=== PATIENT | female | born 1945 | race Hispanic/Latino ===

== ENCOUNTER 2016-06-19 15:23 | Emergency (ER) | payer MEDICARE ==
--- NOTE | 2016-06-19 16:12 | ERRECORD ---
[facility] EMERGENCY RECORD HPI NAUSEA/VOMITING/DIARRHEA (15:59 [facility]) CHIEF COMPLAINT: Patient presents for evaluation of vomiting, dry heaves. HISTORIAN: History provided by patient, 71F presents complaining of one week of intermittent vomiting and belching. States she saw her PMD who prescribed Zofran, but she has been afraid to take it because of the side effects she read on the warning label. Reports that she has not vomited in the last 2-3 days now, but still has some upset stomach episodes which cause her to burp. Making regular bowel movements. Was previously taking Tylenol/Codeine for an arm injury, but has stopped 2 days ago. Denies back pain, chest pain, or shortness of breath. LOCATION FEMALE: Symptoms are generalized. QUALITY: Pain is dull in nature, described as bloating sensation. TIME COURSE: Gradual onset of symptoms, Symptoms are improving, are intermittent. ASSOCIATED WITH FEMALE: Associated with nausea, No associated inability to tolerate oral intake. EXACERBATED BY: Patient's condition exacerbated by nothing. RELIEVED BY: Patient's condition relieved by belching. ROS (16:03 [facility]) CONSTITUTIONAL: Negative constitutional review of systems, Historian denies chills, denies fever. EYES: Negative eye review of systems, Historian denies eye pain, denies vision changes. ENT: Negative ears, nose, throat review of systems, Historian denies rhinorrhea, denies sore throat, denies voice changes. CARDIOVASCULAR: Negative cardiovascular review of systems, Historian denies chest pain, denies palpitations. RESPIRATORY: Negative respiratory review of systems, Historian denies cough, denies shortness of breath. GI: Historian denies food intolerance, reports nausea, reports vomiting. GENITOURINARY FEMALE: Negative genitourinary review of systems, Historian denies dysuria, denies frequency. MUSCULOSKELETAL: Negative musculoskeletal review of systems, Historian denies back pain, denies fall, denies injury. SKIN: Negative skin review of systems, Historian denies rash, denies skin changes. NEUROLOGIC: Negative neurologic review of systems, Historian denies headache, denies mental status changes, denies paralysis, denies paresthesias, denies sensory changes. HEMO/LYMPHATIC: Normal hematologic/lymphatic system review, Historian denies abnormal blood clotting. ALLERGIC/IMMUNOLOGIC: Normal allergy/immunologic system review, Historian denies frequent infections. PAST MEDICAL HISTORY (15:33 [facility]) MEDICAL HISTORY: Past medical history includes history of diabetes, Past medical history includes history of hyperlipidemia, &a-1R&a+25V*p+0X*h7155X*c152B*c15G*c2P*p-0X&a-25V&a+1RName: Danae Chapin : F71 MedRec: [id number] AcctNum: [id number] Prepared: Radha Jun 19, 2016 16:14 by Interface Page 1 of 4 pMD [facility] EMERGENCY RECORD Past medical history includes history of hypertension. FEMALE SURGICAL HISTORY: Patient's surgical history is not relevant to the management of the case. PSYCHIATRIC HISTORY: No previous psychiatric history. SOCIAL HISTORY: Patient denies alcohol use, Patient denies drug use, Patient has no smoking history. KNOWN ALLERGIES latex gloves No Known Drug Allergies CURRENT MEDICATIONS (15:35 [facility]) metFORMIN: TABLET : Strength - 1,000 mg : ORAL Patient Dose: 1000 mg Oral 2 times a day. lisinopril: TABLET : Strength - 20 mg : ORAL Patient Dose: 20 mg Oral 2 times a day. hydrochlorothiazide: TABLET : Strength - 25 mg : ORAL Patient Dose: 12.5 mg Oral. simvastatin: TABLET : Strength - 5 mg : ORAL Patient Dose: mg Oral once a day. ZyrTEC: TABLET : Strength - 10 mg : ORAL Patient Dose: 10 mg Oral once a day. aspirin: TABLET : Strength - 81 mg : ORAL Patient Dose: 81 mg Oral once a day. Synthroid: TABLET : Strength - 50 mcg : ORAL Patient Dose: 50 mcg Oral once a day. acetaminophen-codeine: TABLET : Strength - 300 mg-30 mg : ORAL Patient Dose: 1 tab(s) Oral every 4 hours prn. VITAL SIGNS (15:32 [facility]) VITAL SIGNS: BP: 116/69, Pulse: 93, Resp: 18, Temp: 98.2 (Oral), Pain: 0, O2 sat: 98 on Room Air, Time: 06/19/2016 15:32. PHYSICAL EXAM (16:03 [facility]) CONSTITUTIONAL: Vital signs reviewed, Patient afebrile, Pulse normal, Blood pressure normal, Respiratory rate normal, Patient appears non toxic, Patient appears pain free, Patient alert and oriented to person, place and time. HEAD: Head exam normal, Head exam included findings of head atraumatic, normocephalic. EYES: Eye exam normal, Eye exam included findings of eyelids normal to inspection, Pupils equally round and reactive to light, Extraocular muscles intact, no nystagmus. &a-1R&a+25V*p+0X*u9951F*c152B*c15G*c2P*p-0X&a-25V&a+1RName: Danae Chapin : F71 MedRec: [id number] AcctNum: [id number] Prepared: Radha Jun 19, 2016 16:14 by Interface Page 2 of 4 D [facility] EMERGENCY RECORD ENT: ENT exam normal, Ear exam normal, external ear normal, tympanic membranes normal, no bleeding, Pharynx exam normal, Uvula exam normal, Tonsil exam normal, Mouth exam normal, mucous membranes moist, teeth normal. NECK: Neck exam normal, Neck exam included findings of normal range of motion, Trachea midline, no meningeal signs, no cervical adenopathy, no tenderness. RESPIRATORY CHEST: Respiratory and chest exam normal, Respiratory exam included findings of no respiratory distress, Breath sounds clear. CARDIOVASCULAR: Cardiovascular assessment normal, Cardiovascular exam included findings of heart rate regular rate and rhythm, Heart sounds normal. ABDOMEN FEMALE: Abdominal exam included findings of abdomen nontender, Bowel sounds normal, no distension, no mass, no pulsatile masses, no peritoneal signs, no rigidity, no guarding, no rebound, Rovsing's sign absent. BACK: Back exam normal, Back exam included findings of normal inspection, range of motion normal, no tenderness. UPPER EXTREMITY: Upper extremity exam normal, Upper extremity exam included findings of inspection normal, Range of motion normal, Motor strength normal, Sensation intact, Radial pulse normal. LOWER EXTREMITY: Lower extremity exam normal, Lower extremity exam included findings of inspection normal, Range of motion normal, Motor strength normal, Sensation intact, Posterior tibial pulse normal, Pedal pulse normal. NEURO: Neuro exam normal, Neuro exam findings include patient oriented to person, place and time, Speech normal, Gait normal, Cranial nerves intact, no focal motor deficits, no focal sensory deficits. SKIN: Skin exam normal, Skin exam included findings of skin warm, dry, and normal in color, no rash. PSYCHIATRIC: Psychiatric exam normal, Normal affect. DOCTOR NOTES (16:03 [facility]) TEXT: Patient is well appearing, with improving symptoms of belching and vomiting. benign abdominal exam and despite her previous abdominal surgeries, my suspicion for intestinal obstruction or other surgical issue is very low. I believe her symptoms are possibly secondary to the Tylenol/Codeine, possibly food related, but as they are improving and she has no other alarming signs or symptoms, she is appropriate for outpatient management. PATIENT STATUS: Patient has improved since arrival to emergency department. PATIENT PLAN: The patient will be discharged, The patient will follow up with primary care physician. PROBLEM LIST No recorded problems DIAGNOSIS (15:45 [facility]) &a-1R&a+25V*p+0X*j5330W*c152B*c15G*c2P*p-0X&a-25V&a+1RName: Danae Chapin : F71 MedRec: [id number] AcctNum: [id number] Prepared: Radha Jun 19, 2016 16:14 by Interface Page 3 of 4 pMD [facility] EMERGENCY RECORD FINAL: PRIMARY: ACUTE GASTRITIS WITHOUT BLEEDING. PRESCRIPTION (15:44 [facility]) Reglan oral: TABLET : 5 mg : ORAL : Quantity: 1 Unit: tab(s) Route: ORAL Schedule: every 6 hours PRN Dispense: 12 May substitute. Refills: No Refills . NOTES: No refills. DISPOSITION PATIENT: Disposition Type: Discharge, Disposition: *Discharge Home. (15:45 [facility]) Patient left the department. (16:06 [facility]) Zacarias: DARIEN=MD Mercedes, Haris [facility]=CHLOE Kraus, Lali &a-1R&a+25V*p+0X*l3060Y*c152B*c15G*c2P*p-0X&a-25V&a+1RName: Danae Chapin : F71 MedRec: [id number] AcctNum: [id number] Prepared: Radha Jun 19, 2016 16:14 by Interface Page 4 of 4 pMD MTDD
--- NOTE | 2016-06-19 16:16 | PICIS ---
[facility] EMERGENCY RECORD TRIAGE (MonJun 19, 2016 15:29 [facility]) TRIAGE NOTES: Vomiting x 1 week, diarrhea x 1 day. (MonJun 19, 2016 15:29 [facility]) PATIENT: NAME: Danae Chapin, AGE: 71, GENDER: female, : Sat 1945, TIME OF GREET: MonJun 19, 2016 15:24, PREFERRED LANGUAGE: Yoruba, ETHNICITY: or , ECODE BILLING MAP: [facility], SSN: [id number], Zip Code: [address], KG WEIGHT: 68.95, PHONE: , , , PERSON ID: [id number], PAYMENT: [employer], PCP: DO CANO KRISTEL. (MonJun 19, 2016 15:29 [facility]) COMPLAINT: vomiting. (MonJun 19, 2016 15:29 [facility]) ADMISSION: URGENCY: 3 Urgent, ADMISSION SOURCE: Home, TRANSPORT: CAR, BED: ER -03. ([place] Jun 19, 2016 15:29 [facility]) ASSESSMENT: Assessment: A&OX4. RR EVEN AND UNLABORED., Symptoms began greater than 1 week ago. (15:33 [facility]) PAIN: No complaint of pain. (15:33 [facility]) IMMUNIZATIONS: Flu vaccine not up to date, Tetanus immunization up to date, Pneumococcal vaccine up to date. (15:33 [facility]) SIRS SCORING: Heart Rate 55-109 (0), Temp range 96.8-101.1 (0), respiratory rate 12-24 (0), Mental Status altered: no (0), Infection or Suspected Infection: No. (15:33 [facility]) TRIAGE SCREENING: Patient denies suicidal ideation, Patient denies presence of domestic violence. (15:33 [facility]) PROVIDERS: TRIAGE NURSE: Lali Kraus RN. ([place] Jun 19, 2016 15:29 [facility]) VITAL SIGNS: BP 116/69, Pulse 93, Resp 18, Temp 98.2, (Oral), Pain 0, O2 Sat 98, on Room Air, Time 06/19/2016 15:32. (15:32 [facility]) PREVIOUS VISIT ALLERGIES: No Known Drug Allergies. ([place] Jun 19, 2016 15:29 [facility]) No Known Drug Allergies. (15:33 [facility]) KNOWN ALLERGIES latex gloves No Known Drug Allergies CURRENT MEDICATIONS (15:35 [facility]) metFORMIN: TABLET : Strength - 1,000 mg : ORAL Patient Dose: 1000 mg Oral 2 times a day. lisinopril: TABLET : Strength - 20 mg : ORAL Patient Dose: 20 mg Oral 2 times a day. hydrochlorothiazide: TABLET : Strength - 25 mg : ORAL Patient Dose: 12.5 mg Oral. simvastatin: TABLET : Strength - 5 mg : ORAL Patient Dose: mg Oral once a day. ZyrTEC: TABLET : Strength - 10 mg : ORAL &a-1R&a+25V*p+0X*i1704X*c152B*c15G*c2P*p-0X&a-25V&a+1RName: Danae Chapin : F71 MedRec: [id number] AcctNum: [id number] Prepared: Radha Jun 19, 2016 16:14 by Interface Page 1 of 5 pMD [facility] EMERGENCY RECORD Patient Dose: 10 mg Oral once a day. aspirin: TABLET : Strength - 81 mg : ORAL Patient Dose: 81 mg Oral once a day. Synthroid: TABLET : Strength - 50 mcg : ORAL Patient Dose: 50 mcg Oral once a day. acetaminophen-codeine: TABLET : Strength - 300 mg-30 mg : ORAL Patient Dose: 1 tab(s) Oral every 4 hours prn. VITAL SIGNS (15:32 [facility]) VITAL SIGNS: BP: 116/69, Pulse: 93, Resp: 18, Temp: 98.2 (Oral), Pain: 0, O2 sat: 98 on Room Air, Time: 06/19/2016 15:32. NURSING ASSESSMENT: ABDOMEN (15:35 [facility]) CONSTITUTIONAL: Patient arrives ambulatory, Gait steady, History obtained from patient, Patient appears, uncomfortable, Patient cooperative, Patient alert, Oriented to person, place and time, Skin warm, Skin dry, Skin normal in color, Mucous membranes pink, Mucous membranes moist, Patient is well-groomed, Patient complains of Vomiting, Patient reports vomiting x 1 week, reports diarrhea 1 day ago, vomiting is intermittent, last time she vomited was 3 days. PAIN: cramping pain, diffusely, Patient rates pain as 0 out of 10. ABDOMEN: Abdomen assessment findings include abdomen symmetrical, Abdomen soft, tender, diffusely, Associated with nausea, Associated with vomiting, history of vomiting, no associated constipation, Date of last bowel movement: 06/19/2016 am, Associated with appetite change, decrease. GENITOURINARY FEMALE: no associated urinary complaints. NOTES: Patient tolerated procedure well. NURSING PROCEDURE: DISCHARGE NOTE (15:57 [facility]) DISCHARGE: Patient discharged to home, ambulating without assistance, driving self, unaccompanied, Summary of Care printed/ provided, Transition record given to patient, Discharge instructions given to patient, Simple or moderate discharge teaching performed, by CHLOE Escalera, Discharge instructions and follow up reviewed with patient. Pt ambulatory to discharge desk., Prescriptions given and instructions on side effects given, Name of prescription(s) given: Giovani mcintyre person(s) verbalized understanding of discharge instructions and follow-up care. BELONGINGS: Belongings remain with patient, Valuables remain with patient. HPI NAUSEA/VOMITING/DIARRHEA (15:59 [facility]) CHIEF COMPLAINT: Patient presents for evaluation of vomiting, dry heaves. HISTORIAN: History &a-1R&a+25V*p+0X*r9958T*c152B*c15G*c2P*p-0X&a-25V&a+1RName: Danae Chapin : F71 MedRec: [id number] AcctNum: [id number] Prepared: Radha Jun 19, 2016 16:14 by Interface Page 2 of 5 pMD [facility] EMERGENCY RECORD provided by patient, 71F presents complaining of one week of intermittent vomiting and belching. States she saw her PMD who prescribed Zofran, but she has been afraid to take it because of the side effects she read on the warning label. Reports that she has not vomited in the last 2-3 days now, but still has some upset stomach episodes which cause her to burp. Making regular bowel movements. Was previously taking Tylenol/Codeine for an arm injury, but has stopped 2 days ago. Denies back pain, chest pain, or shortness of breath. LOCATION FEMALE: Symptoms are generalized. QUALITY: Pain is dull in nature, described as bloating sensation. TIME COURSE: Gradual onset of symptoms, Symptoms are improving, are intermittent. ASSOCIATED WITH FEMALE: Associated with nausea, No associated inability to tolerate oral intake. EXACERBATED BY: Patient's condition exacerbated by nothing. RELIEVED BY: Patient's condition relieved by belching. ROS (16:03 [facility]) CONSTITUTIONAL: Negative constitutional review of systems, Historian denies chills, denies fever. EYES: Negative eye review of systems, Historian denies eye pain, denies vision changes. ENT: Negative ears, nose, throat review of systems, Historian denies rhinorrhea, denies sore throat, denies voice changes. CARDIOVASCULAR: Negative cardiovascular review of systems, Historian denies chest pain, denies palpitations. RESPIRATORY: Negative respiratory review of systems, Historian denies cough, denies shortness of breath. GI: Historian denies food intolerance, reports nausea, reports vomiting. GENITOURINARY FEMALE: Negative genitourinary review of systems, Historian denies dysuria, denies frequency. MUSCULOSKELETAL: Negative musculoskeletal review of systems, Historian denies back pain, denies fall, denies injury. SKIN: Negative skin review of systems, Historian denies rash, denies skin changes. NEUROLOGIC: Negative neurologic review of systems, Historian denies headache, denies mental status changes, denies paralysis, denies paresthesias, denies sensory changes. HEMO/LYMPHATIC: Normal hematologic/lymphatic system review, Historian denies abnormal blood clotting. ALLERGIC/IMMUNOLOGIC: Normal allergy/immunologic system review, Historian denies frequent infections. PAST MEDICAL HISTORY (15:33 [facility]) MEDICAL HISTORY: Past medical history includes history of diabetes, Past medical history includes history of hyperlipidemia, Past medical history includes history of hypertension. FEMALE SURGICAL HISTORY: Patient's surgical history is not relevant to the management of the case. &a-1R&a+25V*p+0X*n8018H*c152B*c15G*c2P*p-0X&a-25V&a+1RName: Danae Chapin : F71 MedRec: [id number] AcctNum: [id number] Prepared: Radha Jun 19, 2016 16:14 by Interface Page 3 of 5 pMD [facility] EMERGENCY RECORD PSYCHIATRIC HISTORY: No previous psychiatric history. SOCIAL HISTORY: Patient denies alcohol use, Patient denies drug use, Patient has no smoking history. PHYSICAL EXAM (16:03 [facility]) CONSTITUTIONAL: Vital signs reviewed, Patient afebrile, Pulse normal, Blood pressure normal, Respiratory rate normal, Patient appears non toxic, Patient appears pain free, Patient alert and oriented to person, place and time. HEAD: Head exam normal, Head exam included findings of head atraumatic, normocephalic. EYES: Eye exam normal, Eye exam included findings of eyelids normal to inspection, Pupils equally round and reactive to light, Extraocular muscles intact, no nystagmus. ENT: ENT exam normal, Ear exam normal, external ear normal, tympanic membranes normal, no bleeding, Pharynx exam normal, Uvula exam normal, Tonsil exam normal, Mouth exam normal, mucous membranes moist, teeth normal. NECK: Neck exam normal, Neck exam included findings of normal range of motion, Trachea midline, no meningeal signs, no cervical adenopathy, no tenderness. RESPIRATORY CHEST: Respiratory and chest exam normal, Respiratory exam included findings of no respiratory distress, Breath sounds clear. CARDIOVASCULAR: Cardiovascular assessment normal, Cardiovascular exam included findings of heart rate regular rate and rhythm, Heart sounds normal. ABDOMEN FEMALE: Abdominal exam included findings of abdomen nontender, Bowel sounds normal, no distension, no mass, no pulsatile masses, no peritoneal signs, no rigidity, no guarding, no rebound, Rovsing's sign absent. BACK: Back exam normal, Back exam included findings of normal inspection, range of motion normal, no tenderness. UPPER EXTREMITY: Upper extremity exam normal, Upper extremity exam included findings of inspection normal, Range of motion normal, Motor strength normal, Sensation intact, Radial pulse normal. LOWER EXTREMITY: Lower extremity exam normal, Lower extremity exam included findings of inspection normal, Range of motion normal, Motor strength normal, Sensation intact, Posterior tibial pulse normal, Pedal pulse normal. NEURO: Neuro exam normal, Neuro exam findings include patient oriented to person, place and time, Speech normal, Gait normal, Cranial nerves intact, no focal motor deficits, no focal sensory deficits. SKIN: Skin exam normal, Skin exam included findings of skin warm, dry, and normal in color, no rash. PSYCHIATRIC: Psychiatric exam normal, Normal affect. EVENTS TRANSFER: Triage to Emergency Emergency Room -03. (Sun Jun 19, 2016 15:29 [facility]) &a-1R&a+25V*p+0X*d5947M*c152B*c15G*c2P*p-0X&a-25V&a+1RName: Danae Chapin : F71 MedRec: [id number] AcctNum: [id number] Prepared: Radha Jun 19, 2016 16:14 by Interface Page 4 of 5 pMD [facility] EMERGENCY RECORD Removed from Emergency Emergency Room -03. (16:06 [facility]) DOCTOR NOTES (16:03 [facility]) TEXT: Patient is well appearing, with improving symptoms of belching and vomiting. benign abdominal exam and despite her previous abdominal surgeries, my suspicion for intestinal obstruction or other surgical issue is very low. I believe her symptoms are possibly secondary to the Tylenol/Codeine, possibly food related, but as they are improving and she has no other alarming signs or symptoms, she is appropriate for outpatient management. PATIENT STATUS: Patient has improved since arrival to emergency department. PATIENT PLAN: The patient will be discharged, The patient will follow up with primary care physician. PROBLEM LIST No recorded problems DIAGNOSIS (15:45 [facility]) FINAL: PRIMARY: ACUTE GASTRITIS WITHOUT BLEEDING. DISPOSITION PATIENT: Disposition Type: Discharge, Disposition: *Discharge Home. (15:45 [facility]) Patient left the department. (16:06 [facility]) INSTRUCTION (15:46 [facility]) DISCHARGE: VOMITING (4Y-ADULT). FOLLOWUP: DO CANO KRISTEL, [facility], [address] [place] [phone], [id number]. SPECIAL: Follow up with Dr. Cano. Take Zofran if you're feeling nausea. PRESCRIPTION (15:44 [facility]) Reglan oral: TABLET : 5 mg : ORAL : Quantity: 1 Unit: tab(s) Route: ORAL Schedule: every 6 hours PRN Dispense: 12 May substitute. Refills: No Refills . NOTES: No refills. IMAGING *DISCHARGE INSTRUCTIONS RECEIPT: Image captured from scanner. (16:09 [facility]) *SUPPLY CHARGE SHEET: Image captured from scanner. (16:10 [facility]) ADMIN DIGITAL SIGNATURE: MD Mercedes, Haris. (16:05 [facility]) CHLOE Kraus Krista. (16:11 [facility]) Zacarias: RY=MD Mercedes, Haris KMOR=CHLOE Kraus Krista &a-1R&a+25V*p+0X*i2448R*c152B*c15G*c2P*p-0X&a-25V&a+1RName: Danae Chapin : F71 MedRec: [id number] AcctNum: [id number] Prepared: Radha Jun 19, 2016 16:14 by Interface Page 5 of 5 pMD MTDD
== END 2016-06-19 15:57 | disposition home or self-care (01) ==
LOC: BURERS 15:23
DX: K29.00 Acute gastritis without bleeding (principal); E11.9 Type 2 diabetes mellitus without complications; E78.5 Hyperlipidemia, unspecified; I10 Essential (primary) hypertension
CPT/HCPCS: 99283

== ENCOUNTER 2016-09-01 14:58 | Outpatient (CLI) | payer MEDICARE ==
[2016-09-01 17:01] LABS: #Basophils 0.1 thou/uL (0.0-0.2); #Eosinphils 0.1 thou/uL (0.0-0.7); #Lymphocytes 1.7 thou/uL (1.20-3.40); #Monocytes 0.6 thou/uL (0.11-0.59); #Neutrophils 4.7 thou/uL (1.40-6.50); %Basophils 1.1 % (0.0-1.0); %Eosinophils 1.3 % (0.0-10.0); %Lymphocytes 23.9 % (21.0-51.0); %Monocytes 7.8 % (0.0-10.0); %Neutrophils 65.9 % (42.0-75.0); Hemoglobin 11.8 g/dL (12.0-16.0); Mean Corpuscular HGB CONC 31.3 g/dL (32.0-36.0); Mean Corpuscular Hemoglobin 26.3 pg (27.0-31.0); Mean Corpuscular Volume 84.1 fl (81.0-99.0); Mean Platelet Volume 7.5 fL (7.4-10.4); Platelet Count 227 thou/uL (130-400); RBC Distribution Width 12.9 % (11.5-14.5); Red Blood Cell (RBC) Count 4.48 mill/uL (4.20-5.40); White Blood Cell (WBC) Count 7.1 thou/uL (4.8-10.8)
[2016-09-01 17:54] LABS: Creatinine, Urine 54.14 mg/dL (47-110); Microalbumin Urine Less than 1.0 mg/dL (0.5-50.0); Microalbumin/Creat Ratio 18.5 mg/g (Less than 30)
== END 2016-09-01 14:59 | disposition home or self-care (01) ==
LOC: HPCALD 14:58
PROVIDERS: ATTEND Family Medicine
DX: E11.9 Type 2 diabetes mellitus without complications (principal); E03.9 Hypothyroidism, unspecified; D62 Acute posthemorrhagic anemia
CPT/HCPCS: 36415; 82043; 84443; 85025

== ENCOUNTER 2016-12-07 09:26 | Outpatient (CLI) | payer MEDICARE | END 2016-12-07 09:27 | disposition home or self-care (01) | LOC: HPCALD 09:26 | PROVIDERS: ATTEND Physician Assistant | DX: N39.0 Urinary tract infection, site not specified (principal) | CPT/HCPCS: 87077; 87086; 87186 ==

== ENCOUNTER 2017-07-27 17:49 | Emergency (ER) | payer MEDICARE ==
[2017-07-27 18:33] LABS: #Basophils 0.1 thou/uL (0.0-0.2); #Lymphocytes 1.3 thou/uL (1.20-3.40); #Monocytes 0.6 thou/uL (0.11-0.59); #Neutrophils 4.9 thou/uL (1.40-6.50); %Basophils 1.1 % (0.0-1.0); %Eosinophils 0.3 % (0.0-10.0); %Lymphocytes 18.9 % (21.0-51.0); %Neutrophils 71.7 % (42.0-75.0); Hemoglobin 11.4 g/dL (12.0-16.0); Mean Corpuscular HGB CONC 34.7 g/dL (32.0-36.0); Mean Corpuscular Hemoglobin 27.5 pg (27.0-31.0); Mean Corpuscular Volume 79.1 fl (81.0-99.0); Mean Platelet Volume 7.5 fL (7.4-10.4); Platelet Count 232 thou/uL (130-400); RBC Distribution Width 12.7 % (11.5-14.5); Red Blood Cell (RBC) Count 4.14 mill/uL (4.20-5.40); White Blood Cell (WBC) Count 6.8 thou/uL (4.8-10.8)
[2017-07-27 18:49] LABS: ALT (SGPT) 14 U/L (8-55); AST (SGOT) 30 U/L (5-34); Albumin 4.2 g/dL (3.4-4.8); Alkaline Phosphatase 63 U/L (40-150); Anion Gap 17 mmol/L (10-20); BUN (Urea Nitrogen) 17 mg/dL (9.8-20.1); Bilirubin, Total 0.5 mg/dL (0.2-1.2); Calc. Creatinine Clearance 0 mL/min (70-130); Calcium 9.2 mg/dL (7.8-10.44); Carbon Dioxide 20 mmol/L (23-31); Chloride 90 mmol/L (98-107); Estimated GFR-MDRD 46; Globulin 2.9 g/dL (2.4-3.5); Glucose 98 mg/dL (83-110); Lipase 18 U/L (8-78); Potassium 4.3 mmol/L (3.5-5.1); Protein, Total 7.1 g/dL (6.0-8.3); Sodium 123 mmol/L (136-145)
[2017-07-27 18:52] LABS: Troponin I 0.014 ng/mL (< 0.028)
[2017-07-27 18:54] LABS: CKMB 7.4 ng/mL (0-6.6)
--- NOTE | 2017-07-27 20:35 | RAD ---
ACUTE ABDOMEN SERIES 07/27/17 The gas pattern is nonspecific with gas in nondistended large and small bowel. There is considerable fecal material in the colon. There are no pathologic calcifications. Lumbar scoliosis convexed left i s present along with degenerative change of the spine. A chest film in the series shows a normal sized heart and clear lungs. IMPRESSION: Mild constipation. Nonspecific gas pattern. POS: HOME
[2017-07-27 20:52] LABS: Troponin I 0.018 ng/mL (< 0.028)
== END 2017-07-27 21:06 | disposition home or self-care (01) ==
LOC: BURERS 17:49
DX: R10.10 Upper abdominal pain, unspecified (principal); E78.5 Hyperlipidemia, unspecified; I10 Essential (primary) hypertension; E11.9 Type 2 diabetes mellitus without complications
CPT/HCPCS: 74022; 80053; 82553; 83690; 84484; 85025; 93005

== ENCOUNTER 2019-08-05 12:46 | Outpatient (CLI) | payer MEDICARE ==
--- NOTE | 2019-08-05 17:39 | RAD ---
RIGHT SHOULDER THREE VIEWS: Date: 08-05-2019 Comparison: 08-08-16 from [place] [facility] FINDINGS: The patient's prior fracture of the mid humeral shaft is noted from the past. No acute or recent frac ture was appreciated. There is a little sclerosis along the lateral border of the scapula beneath the glenoid, however, this does appear to be present previously. There is no dislocation or AC joint wid ening. IMPRESSION: Old humeral shaft fracture, but no recent fractures were detected. POS: HOME
--- NOTE | 2019-08-05 17:42 | RAD ---
RIGHT HUMERUS TWO VIEWS: Date: 08-05-2019 FINDINGS: Comparison with 2017 films that show the fracture of the humeral midshaft with some overlap and off-s et of the fragments. The basic alignment of the prior fracture does not appear to have changed. I do not see anything that would allow me to diagnose an acute re-fracture, however, if there were new nubia n at this site then further imaging could be needed. The upper and lower ends of the humerus appeared intact. IMPRESSION: Old mid humeral shaft fracture. I cannot confirm recent re-injury. Correlate with clinical exam. POS: HOME
== END 2019-08-05 12:47 | disposition home or self-care (01) ==
LOC: BURRAD 12:46
PROVIDERS: ATTEND Family Medicine
DX: M25.511 Pain in right shoulder (principal); R22.31 Localized swelling, mass and lump, right upper limb; S42.301D Unspecified fracture of shaft of humerus, right arm, subsequent encounter for fracture with routine healing

== ENCOUNTER 2019-09-15 08:50 | Emergency (ER) | payer MEDICARE, OTHER ==
[2019-09-15] MEDS ORDERED: Triple Antibiotic Oint 1 GM Packet ONE (09:31)
--- NOTE | 2019-09-15 11:05 | RAD ---
PELVIS 2 VIEWS: Date: 09/15/2019 No fracture was appreciated. The bony pelvis appeared intact and the SI joints were not widened. The hip joints are symmetrical. There is no widening of the symphysis. The pubic rings appear intact. IMPRESSION: No acute findings. POS: HOME
--- NOTE | 2019-09-15 11:07 | RAD ---
SACRUM AND COCCYX: Date: 09/15/2019 Three views show the last segment of the coccyx is displaced anteriorly. Additionally, the joint betw een S5 and the top of the coccyx is widened, suggesting that it has been traumatized. An actual fract ure is not seen. Degenerative changes are prominent in the lower lumbar spine at the lumbosacral junc tion. IMPRESSION: Anterior displacement of the last segment of the coccyx and evidence of slight separation between the coccyx and lower sacrum. POS: HOME
== END 2019-09-15 11:15 | disposition home or self-care (01) ==
LOC: BURERS 08:50
DX: S33.2XXA Dislocation of sacroiliac and sacrococcygeal joint, initial encounter (principal); E11.9 Type 2 diabetes mellitus without complications; E78.5 Hyperlipidemia, unspecified; I10 Essential (primary) hypertension; Z20.828 Contact with and (suspected) exposure to other viral communicable diseases; W01.198A Fall on same level from slipping, tripping and stumbling with subsequent striking against other object, initial encounter
CPT/HCPCS: 72170; 72220

== ENCOUNTER 2021-03-25 08:39 | Emergency (ER) | payer OTHER, MEDICARE | END 2021-03-25 10:13 | disposition home or self-care (01) | LOC: BURERS 08:39 | DX: S00.83XA Contusion of other part of head, initial encounter (principal); S50.12XA Contusion of left forearm, initial encounter; E11.9 Type 2 diabetes mellitus without complications; E78.5 Hyperlipidemia, unspecified; I10 Essential (primary) hypertension; E03.9 Hypothyroidism, unspecified; K21.9 Gastro-esophageal reflux disease without esophagitis; W01.198A Fall on same level from slipping, tripping and stumbling with subsequent striking against other object, initial encounter; Y92.009 Unspecified place in unspecified non-institutional (private) residence as the place of occurrence of the external cause | CPT/HCPCS: 70450 ==

== ENCOUNTER 2022-03-12 16:50 | Emergency (ER) | payer OTHER, MEDICARE ==
[2022-03-12] MEDS ORDERED: Acetaminophen 500 MG TAB ONE (17:22)
== END 2022-03-12 18:04 | disposition home or self-care (01) ==
LOC: BURERS 16:50
DX: S30.0XXA Contusion of lower back and pelvis, initial encounter (principal); E11.9 Type 2 diabetes mellitus without complications; E78.5 Hyperlipidemia, unspecified; I10 Essential (primary) hypertension; F03.90 Unspecified dementia, unspecified severity, without behavioral disturbance, psychotic disturbance, mood disturbance, and anxiety; W01.0XXA Fall on same level from slipping, tripping and stumbling without subsequent striking against object, initial encounter
CPT/HCPCS: 72170; 72220

== ENCOUNTER 2022-06-15 14:40 | Outpatient (CLI) | payer MEDICARE | END 2022-06-15 14:41 | disposition home or self-care (01) | LOC: BURRAD 14:40 | PROVIDERS: ATTEND Physician Assistant | DX: M79.642 Pain in left hand (principal); M19.042 Primary osteoarthritis, left hand; M81.0 Age-related osteoporosis without current pathological fracture ==

== ENCOUNTER 2022-10-23 13:29 | Emergency (ER) | payer MEDICARE ==
[2022-10-23] MEDS ORDERED: traMADol HCl 50 MG TAB ONE (15:19)
== END 2022-10-23 16:07 | disposition home or self-care (01) ==
LOC: BURERS 13:29
DX: M25.562 Pain in left knee (principal); I10 Essential (primary) hypertension; E78.5 Hyperlipidemia, unspecified

== ENCOUNTER 2023-10-11 06:45 | Emergency (ER) | payer MEDICARE ==
[2023-10-11 07:18] LABS: Eosinophils 2 % (0-10); Hematocrit 32.5 % (36.0-47.0); Hemoglobin 10.3 g/dL (12.0-16.0); Hypochromia SLIGHT = 6-15 cells (100X) (0-5/hpf); Lymphocytes 22 % (21-51); MDiff Complete? YES; Mean Corpuscular HGB CONC 31.7 g/dL (32.0-36.0); Mean Corpuscular Hemoglobin 24.4 pg (27.0-31.0); Mean Corpuscular Volume 77.2 fl (78.0-98.0); Mean Platelet Volume 8.2 fL (7.4-10.4); Microcytosis SLIGHT = 6-15 cells (100X) (0-5/hpf); Monocytes 7 % (0-10); Neutrophil 69 % (42-75); Platelet Count 175 10x3/uL (130-400); RBC Distribution Width 13.7 % (11.5-14.5); Red Blood Cell (RBC) Count 4.21 mill/uL (4.20-5.40); White Blood Cell (WBC) Count 4.8 10x3/uL (4.8-10.8)
[2023-10-11 07:25] LABS: Bilirubin Negative (Negative); Blood, Urine Trace (Negative); Glucose, Urine (Dipstick) Negative (Negative); Ketone, Urine Negative (Negative); Leukocyte Large (Negative); Nitrite Negative (Negative); Protein, Urine (Dipstick) Negative (Neg-Trace); Urobilinogen 0.2 mg/dL (Less than 2)
[2023-10-11 07:30] LABS: ALT (SGPT) 11 U/L (8-55); AST (SGOT) 25 U/L (5-34); Albumin 3.8 g/dL (3.4-4.8); Alkaline Phosphatase 64 U/L (40-110); Anion Gap 15 mmol/L (10-20); BUN (Urea Nitrogen) 18 mg/dL (9.8-20.1); Bilirubin, Total 0.5 mg/dL (0.2-1.2); Calc. Creatinine Clearance 0 mL/min (70-130); Calcium 8.9 mg/dL (7.8-10.44); Carbon Dioxide 18 mmol/L (23-31); Chloride 106 mmol/L (98-107); Estimated GFR 48; Globulin 2.9 g/dL (2.4-3.5); Glucose 106 mg/dL (83-110); Potassium 4.2 mmol/L (3.5-5.1); Protein, Total 6.7 g/dL (5.8-8.1); Sodium 135 mmol/L (136-145)
[2023-10-11 07:31] LABS: Troponin I 0.019 ng/mL (< 0.028)
[2023-10-11 07:32] LABS: Bacteria/HPF 3+ HPF (None Seen); CAUTI Indications for Culture Alt mental st,lethar; Clarity Hazy (Clear); RBC/HPF 0-3 HPF (0-3); Squamous Epithelial 0-3 HPF (0-3); WBC/HPF 21-50 HPF (0-3)
[2023-10-11 07:34] LABS: Urine Culture Reflex Yes Yes
[2023-10-11] MEDS ORDERED: cefTRIAXone (ROCEPHIN) 1 GM VIAL ONE (08:04)
[2023-10-11] MEDS ORDERED: Sodium Chloride 0.9% 100 ML ONE (08:04)
== END 2023-10-11 08:40 | disposition home or self-care (01) ==
LOC: BURERS 06:45
DX: N39.0 Urinary tract infection, site not specified (principal); E11.9 Type 2 diabetes mellitus without complications; I10 Essential (primary) hypertension; E78.5 Hyperlipidemia, unspecified; Z79.82 Long term (current) use of aspirin; Z79.84 Long term (current) use of oral hypoglycemic drugs; Z79.899 Other long term (current) drug therapy
CPT/HCPCS: 36415; 51701; 71045; 80053; 81001; 84484; 85025; 87077; 87086; 87186; 93005; 96374; J0696; J3490